=== PATIENT | female | born 1960 | race Caucasian/White ===

== ENCOUNTER 2016-07-17 20:48 | Emergency (ER) | payer OTHER ==
[~2016-07-17] VITALS: Ht 175.3 cm; Wt 74.8 kg
[~2016-07-17 20:48] MED LIST: HYDR-3606
[2016-07-17 21:09] VITALS: BP 131/65; PULSE 81; RESP 18; TEMP 97.8; O2SAT 98
[2016-07-17] MEDS ORDERED: DIPHENHYDRAMINE INJ 50 MG/ML VIAL IM ONE (22:00)
[2016-07-17] MEDS ORDERED: MORPHINE SULFATE 10 MG/ML VIAL IM ONE (22:00)
[2016-07-17 23:19] VITALS: BP 131/65; PULSE 81; RESP 18; TEMP 97.8; O2SAT 98
== END 2016-07-17 23:19 | disposition home or self-care (01) ==
LOC: SED 20:48
DX: M25.511 Pain in right shoulder (principal); Z98.890 Other specified postprocedural states
CPT/HCPCS: 73030; 96372; 99284; J1200; J2270